=== PATIENT | female | born 1965 | race Caucasian/White ===

== ENCOUNTER 2019-11-24 18:31 | Inpatient (IN) | payer MEDICARE ==
[~2019-11-24] VITALS: Ht 157.4 cm; Wt 76.3 kg
[~2019-11-24 18:31] MED LIST: ACID CONTROL PO; ADEMPAS2.5 M1 PO; ALBUTEROL0.09 MG/A2 INH; ASPIRIN325 MG PO; BAYER ASPIRIN R81 MG PO; CHANTIX1 M1 PO; CITALOPRAM20 MG PO; CLINDAMYCIN HC300 MG PO; CYCLOBENZAPRINE10 MG PO; FUROSEMIDE20 MG PO; GABAPENTIN600 MG PO; HYDROXYCHLOROQ200 MG PO; IBUPROFEN200 MG; IRON65 MG PO; LETAIRIS5 MG PO; LOMOTIL 0.025 M1 TA1 PO; MAGNESIUM500 MG PO; MEDROL DOSEPAK4 MG PO; Motrin,Rufen800 MG PO; NAPROSYN500 MG PO; NOVAPLUS V0.09 MG/Ac IH; POTASSIUM CHLO10 MEQ PO; REVATIO20 MG PO; ROPINIROLE HYDRO1 MG PO; STOOL SOFTENER100 MG PO; SYNTHROID,LEV200 MCG PO; TRAMADOL HYDROC50 MG PO; TYLENOL325 M1 PO; ULTRAM50 MG PO; VICODIN; XANAX0.5 MG PO; ZITHROMAX Z PA250 MG PO; ZOFRAN ODT4 MG SL
[2019-11-24 18:44] VITALS: BP 130/74
[2019-11-24 19:43] LABS: HEMATOCRIT 40.3 % (37.0-47.0); HEMOGLOBIN 13.1 g/dl (12.0-16.0); MEAN CELL VOLUME 96.6 fl (81.0-99.0); MEAN CORPUSCULAR HGB 31.4 pg (27.0-31.0); MEAN CORPUSCULAR HGB CONC 32.5 g/dl (33.0-37.0); MEAN PLATELET VOLUME 9.9 fl (9.6-12.3); PLATELET COUNT AUTOMATED 233 10*3/uL (130-400); RED BLOOD COUNT 4.17 10*6/uL (4.10-5.10)
[2019-11-24 19:57] LABS: ALBUMIN 3.6 gm/dl (3.1-4.5); ALKALINE PHOSPHATASE 268 U/L (45-117); BUN 11 mg/dl (7-24); CHLORIDE 106 mmol/L (98-107); CREATININE 1.03 mg/dL (0.55-1.02); SGOT/AST 28 IU/L (3-35); SGPT/ALT 37 U/L (12-78); SODIUM 140 mmol/L (136-145); TOTAL PROTEIN 7.5 gm/dL (6.4-8.2)
[2019-11-24 20:01] LABS: PLATELET SUFFICIENCY NORMAL (NORMAL); TOTAL CELLS COUNTED 100 #CELLS
[2019-11-24 20:02] LABS: ACT PARTIAL THROMBO TIME 23.2 SECONDS (20.0-32.1); INTERNATIONAL NORM RATIO 0.9 (2.0-3.5)
[2019-11-24 22:13] VITALS: BP 96/45
[2019-11-24 22:30] VITALS: BP 110/52
--- NOTE | 2019-11-24 22:30 | NUR ---
Time: 2229 A 53 year old FEMALE admitted to 5E under services of MICHAEL PADILLA DO. Pt. arrived via stretcher from ER. Chief complaint: ABDOMINAL PAIN,N/V. LESLY TIRADO
[2019-11-24] MEDS ORDERED: HYDROXYCHLOROQ200 M1 PO (22:54)
[2019-11-24] MEDS ORDERED: GOOD NEIGHBOR L10 MG PO (22:56)
[2019-11-24] MEDS ORDERED: ESCITALOPRAM OX20 MG PO (22:56)
[2019-11-24] MEDS ORDERED: SYMB160 INH (22:57)
[2019-11-24] MEDS ORDERED: VALACYCLOVIR500 M1 PO (22:58)
[2019-11-25] MEDS ORDERED: FLUTICASONE-SA1 EAC3 INH (03:37)
[2019-11-25 06:57] LABS: BASO # 0.1 10*3/uL (0.0-0.1); BASO % 0.7 % (0.0-1.0); EOS # 0.2 10*3/uL (0.0-0.4); EOS % 2.1 % (1.0-4.0); HEMATOCRIT 33.6 % (37.0-47.0); HEMOGLOBIN 10.8 g/dl (12.0-16.0); LYMPH # 1.5 10*3/uL (1.3-4.4); LYMPH % 20.4 % (27.0-41.0); MEAN CORPUSCULAR HGB 31.5 pg (27.0-31.0); MEAN CORPUSCULAR HGB CONC 32.1 g/dl (33.0-37.0); MEAN PLATELET VOLUME 9.8 fl (9.6-12.3); MONO # 0.7 10*3/uL (0.1-1.0); MONO % 9.1 % (3.0-9.0); NEUT # 4.9 10*3/uL (2.3-7.9); NEUT % 67.3 % (47.0-73.0); PLATELET COUNT AUTOMATED 177 10*3/uL (130-400); RED BLOOD COUNT 3.43 10*6/uL (4.10-5.10); RED CELL DISTRI WIDTH 14.2 % (0-14.5); WHITE BLOOD COUNT 7.3 10*3/uL (4.8-10.8)
[2019-11-25 07:06] LABS: ACT PARTIAL THROMBO TIME 32.2 SECONDS (20.0-32.1)
[2019-11-25 07:28] LABS: ALBUMIN 2.8 gm/dl (3.1-4.5); BUN 10 mg/dl (7-24); CHLORIDE 113 mmol/L (98-107); POTASSIUM 3.9 mmol/L (3.5-5.1); SODIUM 143 mmol/L (136-145)
[2019-11-25 07:39] LABS: ALKALINE PHOSPHATASE 198 U/L (45-117); CHOLESTEROL 135 mg/dL (<200); CREATININE 1.03 mg/dL (0.55-1.02); FREE T4 1.17 ng/dl (0.76-1.46); HDL CHOLESTEROL 40 mg/dl (40-60); LDL CHOLESTEROL 78 mg/dL (9-159); PHOSPHOROUS 3.2 mg/dL (2.5-4.9); SGOT/AST 22 IU/L (3-35); SGPT/ALT 28 U/L (12-78); TOTAL PROTEIN 5.8 gm/dL (6.4-8.2); TRIGLYCERIDES 84 mg/dl (<150); VLDL CHOLESTEROL 17 mg/dL (6-40)
[2019-11-25 08:00] VITALS: BP 88/37
[2019-11-25 08:10] LABS: VITAMIN D, 25-HYDROXY 23.1 ng/mL (30-100)
--- NOTE | 2019-11-25 11:12 | NUR ---
Pt was sleeping soundly this AM when this LOCAL SALES MANAGER-S attempted to meet her. Will attempt at a different time.
[2019-11-25 12:00] VITALS: BP 86/36
--- NOTE | 2019-11-25 12:30 | NUR ---
DR. MONTIEL NOTIFIED OF PATIENTS LOW BP.
[2019-11-25 16:00] VITALS: BP 96/52
[2019-11-25 20:00] VITALS: BP 98/50
[2019-11-25 20:09] LABS: BILIRUBIN NEGATIVE (NEGATIVE); BLOOD NEGATIVE (NEGATIVE); CLARITY SL CLOUDY (CLEAR); COLOR YELLOW (YELLOW); GLUCOSE NEGATIVE (NEGATIVE); KETONE NEGATIVE (NEGATIVE)
[2019-11-25 20:10] LABS: BACTERIA 3+; EPITHELIAL CELLS TNTC; LEUKO ESTERASE TRACE (NEGATIVE); MUCOUS 1+; NITRITE NEGATIVE (NEGATIVE); RBC 0-2 rbc/hpf (0-2); UROBILINOGEN 0.2 E.U./dl (0.2-1.0)
[2019-11-25 22:24] VITALS: BP 100/50
[2019-11-26 00:35] VITALS: BP 94/54
--- NOTE | 2019-11-26 03:45 | NUR ---
MEDICATED WITH PO NORCO ORDERED PER PT REQUEST FOR C/O SEVERE HEADACHE RATED 10/10.
--- NOTE | 2019-11-26 04:43 | NUR ---
PT STATES THAT HER HEADACHE HAS "CALMED DOWN". WILL CONTINUE TO MONITOR.
[2019-11-26 06:27] LABS: BASO # 0.1 10*3/uL (0.0-0.1); BASO % 0.8 % (0.0-1.0); EOS # 0.1 10*3/uL (0.0-0.4); EOS % 1.6 % (1.0-4.0); HEMATOCRIT 31.6 % (37.0-47.0); LYMPH # 1.2 10*3/uL (1.3-4.4); LYMPH % 19.1 % (27.0-41.0); MEAN CELL VOLUME 97.5 fl (81.0-99.0); MEAN CORPUSCULAR HGB 30.9 pg (27.0-31.0); MEAN CORPUSCULAR HGB CONC 31.6 g/dl (33.0-37.0); MEAN PLATELET VOLUME 9.8 fl (9.6-12.3); MONO # 0.5 10*3/uL (0.1-1.0); MONO % 7.7 % (3.0-9.0); NEUT # 4.4 10*3/uL (2.3-7.9); NEUT % 70.5 % (47.0-73.0); PLATELET COUNT AUTOMATED 188 10*3/uL (130-400); RED BLOOD COUNT 3.24 10*6/uL (4.10-5.10); RED CELL DISTRI WIDTH 14.3 % (0-14.5); WHITE BLOOD COUNT 6.2 10*3/uL (4.8-10.8)
[2019-11-26 06:38] LABS: BUN 10 mg/dl (7-24); CHLORIDE 113 mmol/L (98-107); CREATININE 1.11 mg/dL (0.55-1.02); POTASSIUM 3.7 mmol/L (3.5-5.1); SODIUM 142 mmol/L (136-145)
[2019-11-26 08:00] VITALS: BP 102/53
[2019-11-26] MEDS ORDERED: VITAMIN D32000 UNI1 PO (09:26)
[2019-11-26] MEDS ORDERED: CIPRO500 MG PO (09:29)
[2019-11-26] MEDS ORDERED: FLAGYL500 MG PO (09:29)
--- NOTE | 2019-11-26 10:26 | NUR ---
Account Resolution Analyst in to talk to patient. Patient states lives at home with . There are 0 steps in the home. Physician: Dr Burton Pharmacy: [facility] health services: no Patient's level of ADLs: INDEPENDENT Patient has working utilities: yes DME: no Follow-up physician's appointment after d/c: yes Does patient want to access PORTAL?: yes Discharge plan Patient is independent and resides at home with her . Pt has never needed HH or SNF. Anticipate pt returning home with no needs. MAURICE GRUBER
--- NOTE | 2019-11-26 12:35 | NUR ---
Discharge instructions reviewed with patient/family. Patient receptive and verbalizes understanding. Follow-up care arranged. Written instructions given to patient/family. TRACY GARZA
== END 2019-11-26 12:35 | disposition home or self-care (01) | DRG 872 ==
LOC: ED 18:31 → EDHOLD 21:58 → 5E 22:06
PROVIDERS: Internal Medicine; Student in an Organized Health Care Education/Training Program; ADMIT Emergency Medicine
DX: A41.9 Sepsis, unspecified organism (principal); M34.9 Systemic sclerosis, unspecified; I27.21 Secondary pulmonary arterial hypertension; M32.9 Systemic lupus erythematosus, unspecified; K52.9 Noninfective gastroenteritis and colitis, unspecified; E86.0 Dehydration; Z96.651 Presence of right artificial knee joint; D72.810 Lymphocytopenia; G62.9 Polyneuropathy, unspecified; K21.0 Gastro-esophageal reflux disease with esophagitis; I73.00 Raynaud's syndrome without gangrene; Z71.6 Tobacco abuse counseling; Z82.49 Family history of ischemic heart disease and other diseases of the circulatory system; Z80.8 Family history of malignant neoplasm of other organs or systems; Z90.49 Acquired absence of other specified parts of digestive tract; Z88.0 Allergy status to penicillin

== ENCOUNTER 2021-02-24 10:58 | Emergency (ER) | payer MEDICARE ==
[~2021-02-24] VITALS: Ht 157.4 cm; Wt 70.3 kg
[~2021-02-24 10:58] MED LIST changes: +CIPRO500 MG PO; +ESCITALOPRAM OX20 MG PO; +FLAGYL500 MG PO; +FLUTICASONE-SA1 EAC3 INH; +GOOD NEIGHBOR L10 MG PO; +HYDROXYCHLOROQ200 M1 PO; +SYMB160 INH; +VALACYCLOVIR500 M1 PO; +VITAMIN D32000 UNI1 PO
== END 2021-02-24 16:02 | disposition home or self-care (01) ==
LOC: ED 10:58
DX: M79.7 Fibromyalgia (principal); R51.9 Headache, unspecified; Z88.0 Allergy status to penicillin; Z79.899 Other long term (current) drug therapy; Z96.641 Presence of right artificial hip joint; Z98.890 Other specified postprocedural states; Z90.49 Acquired absence of other specified parts of digestive tract; W19.XXXA Unspecified fall, initial encounter; Y93.89 Activity, other specified; Y92.89 Other specified places as the place of occurrence of the external cause; Y99.8 Other external cause status